=== PATIENT | female | born 1990 | race Two or more races ===

== ENCOUNTER 2022-11-05 02:12 | Emergency (ER) | payer BC ==
[~2022-11-05] VITALS: Ht 160 cm; Wt 70.8 kg
--- NOTE | 2022-11-05 02:25 | NUR ---
VANE francis while climbing a fence, 8/10 ps, no tdap
[2022-11-05] MEDS ORDERED: LIDOCAINE 1%-EPI 1:100,000 20 ML VIAL ONE (02:37)
[2022-11-05] MEDS ORDERED: TDAP [DIPH/PERTUSSIS/TET] 0.5 ML VIAL IM ONE ×2 (02:40→03:00)
[2022-11-05] MEDS ORDERED: IBUPROFEN 600 MG TABLET ONE (02:58)
[2022-11-05] MEDS ORDERED: ACETAMINOPHEN ES 500 MG TABLET ONE (02:58)
[2022-11-05] MEDS ORDERED: IBUPROFEN 600 MG TABLET PO ONE (03:00)
[2022-11-05] MEDS ORDERED: ACETAMINOPHEN ES 500 MG TABLET PO ONE (03:00)
[2022-11-05] MEDS ORDERED: LIDOCAINE 1%-EPI 1:100,000 20 ML VIAL TP ONE (03:00)
--- NOTE | 2022-11-05 03:05 | NUR ---
DR. WHELAN AT BEDSIDE
--- NOTE | 2022-11-05 03:31 | NUR ---
X-RAY AT BEDSIDE
[2022-11-05] MEDS ORDERED: HYDROCODONE/APAP 5/325MG TABLET ONE (04:22)
[2022-11-05] MEDS ORDERED: TRAMADOL HCL 50 MG TABLET ONE (04:25)
[2022-11-05] MEDS ORDERED: TRAM50TA2 PO (04:25)
[2022-11-05] MEDS ORDERED: IBUP-1953 PO (04:25)
[2022-11-05] MEDS ORDERED: HYDROCODONE/APAP 5/325MG TABLET PO ONE (04:30)
[2022-11-05] MEDS ORDERED: TRAMADOL HCL 50 MG TABLET PO ONE (04:30)
[2022-11-05 04:51] VITALS: BP 127/96
--- NOTE | 2022-11-05 04:51 | NUR ---
Patient discharged to home in stable condition. Written and verbal after care instructions given. Patient verbalizes understanding of instruction.
== END 2022-11-05 04:52 | disposition home or self-care (01) ==
LOC: ER 02:14
DX: S41.112A Laceration without foreign body of left upper arm, initial encounter (principal); S49.82XA Other specified injuries of left shoulder and upper arm, initial encounter; J45.909 Unspecified asthma, uncomplicated; F41.9 Anxiety disorder, unspecified; Y93.39 Activity, other involving climbing, rappelling and jumping off; Y93.89 Activity, other specified; Y92.89 Other specified places as the place of occurrence of the external cause; Y99.8 Other external cause status
CPT/HCPCS: 99284; 12002; 90471; 90715; 73060; 73030; J3490